=== PATIENT | male | born 1960 | race Caucasian/White ===

== ENCOUNTER 2016-09-15 04:44 | Emergency (ER) | payer MEDICAID ==
[2016-09-15 05:04] VITALS: BP 101/61
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
== END 2016-09-15 05:17 | disposition home or self-care (01) ==
LOC: MW.ED 04:44
DX: Z72.89 Other problems related to lifestyle (principal); F17.210 Nicotine dependence, cigarettes, uncomplicated
CPT/HCPCS: 82962; 99281; 99283